=== PATIENT | male | born 1955 | race Two or more races ===

== ENCOUNTER 2018-08-17 12:00 | Emergency (ER) | payer OTHER ==
[~2018-08-17] VITALS: Ht 172.7 cm; Wt 113.4 kg
[2018-08-17 13:20] LABS: Eosinophils # (auto) 0.2 uL; Monocytes # (auto) 0.5 uL; Monocytes % (auto) 6.5 % (0.0-12.0); White Blood Cell 7.1 10^3/uL (4.4-10.8)
[2018-08-17 13:22] LABS: Basophils # (auto) 0 uL; Basophils % (auto) 0.5 % (0.0-2.0); Eosinophils % (auto) 3.2 % (0.0-7.0); Hematocrit 43.4 % (41.0-53.0); Mean Corpuscular Hgb Conc. 32.1 g/dL (32.0-36.0); Mean Corpuscular Volume 77.6 fL (80.0-100.0); Neutrophils # (auto) 4.4 uL; Neutrophils % (auto) 61.8 % (37.0-80.0); Platelet Count (auto) 348 10^3/uL (140-450); Red Blood Cells 5.59 10^6/uL (4.5-5.90); Red Cell Distribution Width 15.2 % (11.8-14.3)
[2018-08-17 13:45] LABS: Albumin 3.6 g/dL (3.4-5.0); BUN/Creatinine Ratio 15.9; Calcium 8.6 mg/dL (8.5-10.1)
[2018-08-17 13:49] LABS: Bilirubin, Total 0.3 mg/dL (0.2-1.0); Total Protein 9.2 g/dL (6.4-8.2)
[2018-08-17] MEDS ORDERED: SODIUM CHLORIDE 0.9% 500 ML IVB ONE (15:18)
[2018-08-17] MEDS ORDERED: SODIUM CHLORIDE 0.9% 1,000 ML IV ONE (15:18)
[2018-08-17 15:44] LABS: Magnesium 1.7 mg/dL (1.6-2.6)
[2018-08-17 17:43] LABS: Urine Amorphous Crystal FEW /hpf (None Seen); Urine Bacteria MOD /hpf (None Seen); Urine Blood TRACE /uL (Negative); Urine Mucus FEW (None Seen); Urine Specific Gravity 1.018 (1.001-1.035); Urine WBC 57 /hpf (0 - 3)
[2018-08-17] MEDS ORDERED: cefTRIAXone 1GM/50ML D5W 50 ML IV ONE ×2 (17:54→18:00)
[2018-08-17] MEDS ORDERED: ONDANSETRON HCL 4 MG/2 ML VIAL IV ONE (18:00)
[2018-08-17] MEDS: MORPHINE SULFATE 4 MG/ML SYR/VIAL IV ONE ×2 (18:06→19:24)
[2018-08-17 19:32] VITALS: BP 118/72
== END 2018-08-17 20:08 | disposition home or self-care (01) ==
LOC: ER 12:01
DX: G82.21 Paraplegia, complete (principal); L98.8 Other specified disorders of the skin and subcutaneous tissue; L89.103 Pressure ulcer of unspecified part of back, stage 3; N39.0 Urinary tract infection, site not specified; E11.9 Type 2 diabetes mellitus without complications; E78.5 Hyperlipidemia, unspecified; I10 Essential (primary) hypertension
CPT/HCPCS: 36415; 74176; 80053; 81001; 83690; 83735; 85025; 87040; 93005; 96365; 96375; 99284; J0696; J2270; J2405

== ENCOUNTER 2021-11-08 13:55 | Inpatient (IN) | payer OTHER ==
[~2021-11-08] VITALS: Ht 172.7 cm; Wt 90.7 kg
[2021-11-08] MEDS ORDERED: ONDANSETRON HCL 4 MG/2 ML VIAL IV ONE (14:30)
[2021-11-08] MEDS ORDERED: SODIUM CHLORIDE 0.9% 1,000 ML IVB ONE (14:30)
[2021-11-08] MEDS ORDERED: MORPHINE SULFATE 4 MG/ML SYR/VIAL IV ONE (14:30)
[2021-11-08 16:18] LABS: Monocytes # (auto) 0.7 10 ^3/uL (0-1.3); Monocytes % (auto) 4.8 % (0.0-12.0); White Blood Cell 15.4 10^3/uL (4.4-10.8)
[2021-11-08 16:19] LABS: Basophils # (auto) 0.1 10 ^3/uL (0-0.2); Basophils % (auto) 0.9 % (0.0-2.0); Eosinophils # (auto) 0.3 10 ^3/uL (0-0.8); Eosinophils % (auto) 1.9 % (0.0-7.0); Hematocrit 40.3 % (41.0-53.0); Hemoglobin 13.3 g/dL (13.5-17.5); Lymphocytes # (auto) 2.7 10 ^3/uL (0.4-5.4); Lymphocytes % (auto) 17.5 % (10.0-50.0); Mean Corpuscular Hgb Conc. 32.9 g/dL (32.0-36.0); Mean Corpuscular Volume 76.2 fL (80.0-100.0); Neutrophils # (auto) 11.5 10 ^3/uL (1.6-8.6); Neutrophils % (auto) 74.9 % (37.0-80.0); Red Blood Cells 5.29 10^6/uL (4.5-5.90)
[2021-11-08 16:41] LABS: Albumin 3.3 g/dL (3.4-5.0); BUN/Creatinine Ratio 18.1; Calcium 9.2 mg/dL (8.5-10.1); Potassium 3.7 mmol/L (3.5-5.1)
[2021-11-08 16:44] LABS: Bilirubin, Total 0.3 mg/dL (0.2-1.0); Total Protein 9.1 g/dL (6.4-8.2)
[2021-11-08] MEDS ORDERED: IOHEXOL 300 MG/ML 100ML BOTTLE IJ ONE ×2 (17:09→20:06)
[2021-11-08] MEDS ORDERED: CLINDAMYCIN 600MG IV 50 ML IV ONE (21:30)
[2021-11-09 02:49] LABS: Urine Bacteria NONE SEEN /hpf (None Seen); Urine Blood TRACE /uL (Negative); Urine Mucus FEW (None Seen); Urine Specific Gravity > 1.050 (1.001-1.035); Urine WBC 293 /hpf (0 - 3); Urine WBC Clumps PRESENT /hpf (None Seen)
[2021-11-09] MEDS ORDERED: DOCUSATE SOD 100 MG CAP PO PRN (03:45)
[2021-11-09] MEDS ORDERED: SODIUM CHLORIDE 0.9% 1,000 ML IV SCH (03:45)
[2021-11-09] MEDS ORDERED: VANCOMYCIN PER PHARMACY 0 MG IV SCH (03:45)
[2021-11-09] MEDS ORDERED: ONDANSETRON HCL 4 MG/2 ML VIAL IV PRN (03:45)
[2021-11-09] MEDS ORDERED: MORPHINE SULFATE INJ 2 MG/ml SYRG IV PRN ×2 (03:45→06:30)
[2021-11-09] MEDS ORDERED: VANCOMYCIN 1GM/250ML 250 ML IV ONE ×2 (04:00→04:45)
[2021-11-09 06:01] LABS: Basophils # (auto) 0.2 10 ^3/uL (0-0.2); Eosinophils # (auto) 0.3 10 ^3/uL (0-0.8)
[2021-11-09 06:03] LABS: Basophils % (auto) 2.2 % (0.0-2.0); Eosinophils % (auto) 2.9 % (0.0-7.0); Hematocrit 38.1 % (41.0-53.0); Hemoglobin 12.5 g/dL (13.5-17.5); Lymphocytes % (auto) 19.6 % (10.0-50.0); Mean Corpuscular Hemoglobin 25.2 pg (28.0-32.0); Mean Corpuscular Hgb Conc. 32.7 g/dL (32.0-36.0); Mean Corpuscular Volume 76.9 fL (80.0-100.0); Monocytes # (auto) 0.8 10 ^3/uL (0-1.3); Monocytes % (auto) 7.5 % (0.0-12.0); Neutrophils % (auto) 67.8 % (37.0-80.0); Red Blood Cells 4.95 10^6/uL (4.5-5.90); Red Cell Distribution Width 14.7 % (11.8-14.3); White Blood Cell 10.4 10^3/uL (4.4-10.8)
[2021-11-09 06:17] LABS: BUN/Creatinine Ratio 21.3; Calcium 8.7 mg/dL (8.5-10.1); Potassium 4.1 mmol/L (3.5-5.1)
[2021-11-09] MEDS: PIPERACILLIN-TAZOB 3.375GM 100 ML IV SCH ×2 (06:24→12:48)
[2021-11-09] MEDS ORDERED: NITROGLYCERIN 0.4 MG SL TAB SL PRN (06:30)
[2021-11-09] MEDS ORDERED: ENOXAPARIN SOD 40 MG/0.4 ML SYRINGE SC SCH (10:00)
[2021-11-09 13:01] VITALS: BP 137/75
[2021-11-09] MEDS ORDERED: VANCOMYCIN 1GM/250ML 250 ML IV SCH (17:00)
== END 2021-11-09 15:08 | disposition home or self-care (01) | DRG 395 ==
LOC: ER 13:55 → TELE 11-09 06:30
PROVIDERS: ADMIT Hospitalist; ATTEND Hospitalist
DX: K61.2 Anorectal abscess (principal); E11.65 Type 2 diabetes mellitus with hyperglycemia; I10 Essential (primary) hypertension; Z93.3 Colostomy status; E11.51 Type 2 diabetes mellitus with diabetic peripheral angiopathy without gangrene; L89.159 Pressure ulcer of sacral region, unspecified stage; L89.309 Pressure ulcer of unspecified buttock, unspecified stage; N30.90 Cystitis, unspecified without hematuria; L89.619 Pressure ulcer of right heel, unspecified stage; L89.629 Pressure ulcer of left heel, unspecified stage; L98.429 Non-pressure chronic ulcer of back with unspecified severity; Z20.822 Contact with and (suspected) exposure to COVID-19; Z79.84 Long term (current) use of oral hypoglycemic drugs
CPT/HCPCS: 36415; 74177; 80048; 80053; 81001; 82150; 83036; 83605; 83690; 85025; 87040; 87077; 87086; 87088; 87186; 87205; 93925; 96365; 96375; G0378; J2405; J2543; J3490